=== PATIENT | female | born 1985 | race Caucasian/White ===

== ENCOUNTER 2020-04-22 18:27 | Emergency (ER) | payer OTHER, SELFPAY ==
[2020-04-22 18:28] VITALS: BP 135/85; PULSE 86; RESP 16; TEMP 36.8; O2SAT 97; BMI 34.2
--- NOTE | 2020-04-22 18:51 | [facility].EDGENADL ---
ED Disposition Clinical Impression: Epigastric pain, Odynophagia Disposition: Home, Self-Care Condition on Discharge: Good Instructions: DI for Abdominal Pain-Adult, DI for Esophageal Dysphagia Additional Instructions: Protonix as prescribed. Call your primary care doctor tomorrow to arrange follow-up and to discuss gallbladder ultrasound. Additional instructions for ABDOMINAL PAIN: See your physician as soon as possible for further evaluation. Return immediately if worsening abdominal pain, vomiting, shortness of breath, fever, vomiting of blood or abdominal distention. Prescriptions: Pantoprazole Sodium [Protonix 40mg tablet] 40 mg PO DAILY #14 tab Transmission Status: Pending to [facility] Referrals: Mariaelena Cole APRN [Primary Care Provider] - - Critical Care Critical Care Time: No Attestation: On , the high probability of a clinically significant, sudden or life threatening deterioration of the following system(s) required my full and direct attention, intervention and personal management. The time I documented below is in addition to time spent performing reported procedures but includes the following listed in this critical care notation. Medical Decision Making - Rolando Inquiry Pt receiving controlled substance: No Vital Signs: 04/22/20 18:28 Temperature 98.3 F Temperature Source Oral Pulse Rate [Left Radial] 86 Respiratory Rate 16 Blood Pressure [Right Arm] 135/85 Blood Pressure Mean [Right Arm] 101 Blood Pressure Source [Right Arm] Automatic Cuff Blood Pressure Position [Right Arm] Sitting 02 Sat by Pulse Oximetry 97 Oxygen Delivery Method Room Air - Lab Data Lab Results 04/22/20 18:54: Urine Color Yellow, Urine Appearance Clear, Urine pH 6.0, Ur Specific [place] >= 1.030, Urine Protein Negative, Urine Glucose (UA) Negative, Urine Ketones Negative, Urine Blood 2+, Urine Nitrate Negative, Urine Bilirubin Negative, Urine Urobilinogen 0.2, Ur Leukocyte Esterase Negative, Urine RBC 3-5, Urine WBC 3-5, Ur Squamous Epith Cells 3-5, Urine Bacteria None 04/22/20 18:54: Urine HCG, Qual Negative 04/22/20 19:10: WBC 7.8, RBC 4.83, Hgb 14.5, Hct 45.2, MCV 93.5, MCH 30.0, MCHC 32.0, RDW 13.9, Plt Count 391, MPV 7.6, Neut % (Auto) 57.3, Lymph % (Auto) 34.0, Robertson % (Auto) 4.0, Eos % (Auto) 4.0, Baso % (Auto) 0.8, Neut # (Auto) 4.5, Lymph # (Auto) 2.6, Robertson # (Auto) 0.3, Eos # (Auto) 0.3, Baso # (Auto) 0.1 04/22/20 19:10: Sodium 138, Potassium 4.0, Chloride 105, Carbon Dioxide 26, Anion Gap 11.0, BUN 15, Creatinine 0.90, Estimated Creat Clear 122, Estimated GFR 72, Est GFR ( Amer) 87, Glucose 112 H, Calcium 9.2, Total Bilirubin 0.4, AST 23, ALT 17, Alkaline Phosphatase 78, Total Protein 7.1, Albumin 4.3, Globulin 2.8, Albumin/Globulin Ratio 1.5, Amylase 92, Lipase 258 Result diagrams: 04/22/20 19:10 04/22/20 19:10 Orders (Tests/Meds): ED MEDICATIONS Generic Name Dose Route Start Last Admin Trade Name Freq PRN Reason Stop Dose Admin Sodium Chloride 10 ml 04/22/20 19:04 04/22/20 19:17 Sodium Chloride 0.9% 10ml Vial IV 05/22/20 19:03 10 ml NEEDED PRN Administration dilute protonix Discontinued Medications Generic Name Dose Route Start Last Admin Trade Name Freq PRN Reason Stop Dose Admin Belladonna Alkaloids 60 ml 04/22/20 19:04 04/22/20 19:16 Gi Cocktail 60ml Udc PO 04/22/20 19:05 60 ml ONCE ONE Administration Pantoprazole Sodium 40 mg 04/22/20 19:04 04/22/20 19:16 Pantoprazole 40mg Vial IV 04/22/20 19:05 40 mg ONCE ONE Administration General Adult HPI - General Stated complaint: Abd pain when eating, back pain Time Seen by Provider: 04/22/20 18:51 - History of Present Illness HPI narrative: 3-day history of epigastric pain. She has odynophagia when swallowing food that occurs in the epigastric area. She also experiences spasms and an ache in that area after eating. It radiates through to her back. She
[2020-04-22 19:04] LABS: Microscopic, Urine URINE MICROSCOPIC (MICROSCOPIC)
[2020-04-22 19:05] LABS: Appearance,Urine CLEAR (Clear); Bilirubin,Urine Negative (Negative); Blood, Urine 2+ (Negative); Color,Urine YELLOW (Yellow); Glucose,Urine (UA) Negative (Negative); Ketones,Urine Negative (Negative); Leukocyte Esterase,Urine Negative (Negative); Nitrate,Urine Negative (Negative); Protein,Urine Negative (Negative); Specific Gravity, Urine >= 1.030 (1.005-1.030); Urobilinogen,Urine 0.2 EU/dl (0.2)
[2020-04-22 19:08] LABS: Urine Pregnancy, HCG Qual. Negative (Negative)
[2020-04-22 19:18] LABS: Basophils # 0.1 K/mm3 (0-0.2); Basophils % 0.8 % (0.1-2.0); Eosinophils # 0.3 K/mm3 (0.0-0.4); Hematocrit 45.2 % (37.0-47.0); Hemoglobin 14.5 g/dL (12.2-16.2); Lymphocytes # 2.6 K/mm3 (0.7-4.5); Mean Corpuscular Volume 93.5 fl (81-99); Mean Platelet Volume 7.6 fl (7.4-10.4); Monocytes # 0.3 K/mm3 (0.1-1.0); Neutrophils # 4.5 K/mm3 (1.8-7.8); Neutrophils % 57.3 % (37.0-80.0); Platelet Count 391 K/mm3 (142-424); Red Blood Count 4.83 M/mm3 (4.20-5.40); Red Cell Distribution Width 13.9 % (11.5-17.5); White Blood Count 7.8 K/mm3 (4.8-10.8)
[2020-04-22 19:22] LABS: Chloride 105 mmol/L (98-107)
[2020-04-22 19:23] LABS: Sodium 138 mmol/L (136-145)
[2020-04-22 19:25] LABS: Alanine Aminotransferase 17 U/L (12-78); Amylase 92 U/L (30-110); Aspartate Amino Transferase 23 U/L (14-36); Blood Urea Nitrogen 15 mg/dl (7-17); Carbon Dioxide 26 mmol/L (22.0-30.0); Creatinine Clearance Estimated 122 mL/min (50-200); Estimated Glomerular Filt Rate 72 ml/min (>60); GFR (African American) 87 ML/MIN (>60)
[2020-04-22 19:26] LABS: Albumin Level 4.3 g/dl (3.5-5.0); Albumin/Globulin Ratio 1.5 (1.1-1.8); Alkaline Phosphatase 78 U/L (38-126); Bilirubin,Total 0.4 mg/dl (0.2-1.3); Calcium 9.2 mg/dl (8.4-10.2); Globulin 2.8 g/dL (1.3-3.2); Glucose 112 mg/dl (74-100); Lipase 258 U/L (23-300); Total Protein,Serum 7.1 g/dl (6.3-8.2)
[2020-04-22 19:28] VITALS: BP 129/85; PULSE 88; RESP 16; O2SAT 97
[2020-04-22 19:30] VITALS: BP 129/85; PULSE 86; RESP 17; O2SAT 96
[2020-04-22 19:57] VITALS: BP 129/83; PULSE 76; RESP 15; TEMP 36.7; O2SAT 96
== END 2020-04-22 20:01 | disposition home or self-care (01) ==
PROVIDERS: Emergency Provider Emergency Medicine; PCP Nurse Practitioner
DX: R10.13 Epigastric pain (principal); R13.10 Dysphagia, unspecified; K21.9 Gastro-esophageal reflux disease without esophagitis; Z88.0 Allergy status to penicillin
CPT/HCPCS: 80053; 81001; 81025; 82150; 83690; 85025; 96374; 99283

== ENCOUNTER → 2020-12-06 11:19 | Outpatient (CLI) | payer OTHER, SELFPAY ==
--- NOTE | 2020-12-06 11:24 | XR_ITS ---
PROCEDURE: XR FOOT LT MIN 3V CLINICAL INDICATION: LT FOOT PAIN COMPARISON: No exams were available for comparison FINDINGS: No fracture or dislocation. No lytic or blastic change. There is normal mineralization. The joint spaces are well-preserved. No significant degenerative/arthritic changes. No erosive changes evident. Other findings:None. IMPRESSION: No acute findings. Dictated by: Malik Reed MD 12/06/2020 12:35 Malik Reed MD in [place] 12/06/2020 12:35
--- NOTE | 2020-12-06 11:24 | XR_ITS ---
PROCEDURE: XR FOOT RT MIN 3V CLINICAL INDICATION: RT FOOT PAIN COMPARISON: No exams were available for comparison FINDINGS: No fracture or dislocation. No lytic or blastic change. There is normal mineralization. The joint spaces are well-preserved. No significant degenerative/arthritic changes. No erosive changes evident. Other findings:None. IMPRESSION: No acute findings. Dictated by: Malik Reed MD 12/06/2020 12:36 Malik Reed MD in [place] 12/06/2020 12:36
== END ==
PROVIDERS: PCP Nurse Practitioner; Visit Provider Nurse Practitioner
DX: M79.672 Pain in left foot (principal); M79.671 Pain in right foot
CPT/HCPCS: 73630

== ENCOUNTER 2021-11-26 17:14 | Emergency (ER) | payer OTHER, SELFPAY ==
[2021-11-26 17:37] VITALS: BP 0/0; PULSE 0; RESP 0; TEMP -17.7; TEMP 0
== END 2021-11-26 17:39 | disposition left against medical advice (07) ==
LOC: UTC 17:16
PROVIDERS: Emergency Provider Nurse Practitioner Family; PCP Nurse Practitioner
DX: Z53.21 Procedure and treatment not carried out due to patient leaving prior to being seen by health care provider (principal)

== ENCOUNTER 2023-08-21 13:50 | Outpatient (CLI) | payer OTHER, SELFPAY ==
--- NOTE | 2023-08-21 13:57 | US_ITS ---
FINAL REPORT CLINICAL HISTORY: NODULE OF SKIN OF CHEST FINDINGS: Limited sonographic images were obtained below the sternum. There is a focal echogenic area below the sternum which correlates to the palpable abnormality of uncertain etiology, could represent prominent xiphoid process. IMPRESSION: Focal echogenic area below the sternum, could represent prominent xiphoid process. If indicated, CT could further evaluate. Reviewed, Interpreted and Dictated by Mulugeta Brandon III, MD Transcribed by Kelsi Blood Authenticated and [facility]
== END 2023-08-21 23:59 ==
LOC: RAD 13:51
PROVIDERS: PCP Nurse Practitioner; Visit Provider Nurse Practitioner
DX: R22.2 Localized swelling, mass and lump, trunk (principal)
CPT/HCPCS: 76604

== ENCOUNTER 2024-09-11 18:35 | Outpatient (CLI) | payer OTHER, SELFPAY | END 2024-09-11 23:59 | disposition home or self-care (01) | LOC: LAB.DROPOF 09-12 08:52 | PROVIDERS: PCP Student in an Organized Health Care Education/Training Program; Visit Provider Student in an Organized Health Care Education/Training Program | DX: R35.0 Frequency of micturition (principal); B96.20 Unspecified Escherichia coli [E. coli] as the cause of diseases classified elsewhere | CPT/HCPCS: 87086; 87088; 87186 ==